=== PATIENT | female | born 1970 | race Native Hawaiian/Other Pacific Islander ===

== ENCOUNTER 2020-04-07 16:47 | Outpatient (CLI) | payer OTHER | END 2020-04-07 20:27 | disposition home or self-care (01) | LOC: RAD 16:47 | DX: M54.6 Pain in thoracic spine (principal) ==

== ENCOUNTER 2021-01-26 14:31 | Outpatient (CLI) | payer OTHER | END 2021-01-26 20:21 | disposition home or self-care (01) | LOC: MAMMO 14:31 | PROVIDERS: ATTEND Optometrist | DX: Z12.31 Encounter for screening mammogram for malignant neoplasm of breast (principal) ==

== ENCOUNTER 2021-03-01 12:22 | Outpatient (CLI) | payer OTHER | END 2021-03-01 19:04 | disposition home or self-care (01) | LOC: RAD 12:22 | PROVIDERS: ATTEND Nurse Practitioner Acute Care | DX: M25.572 Pain in left ankle and joints of left foot (principal) ==